=== PATIENT | female | born 1940 | race Caucasian/White ===

== ENCOUNTER → 2017-04-21 | Outpatient (CLI) | payer MEDICARE, OTHER ==
[~2017-04-21] MED LIST: ? HTN MED; ACET500 PO; ACYC800 PO; ALBU.083IS IH; ALBU90OI; ALBU90OI INH; ALPR.25 PO; ALPR1 PO; ASPI325; ASPI325EC PO; AZIT250 PO; Aerochamber1 EACH; BECL80OI INH; BENZ100A PO; BUDE6HFA; Brovana15 MCG/2 M INH; CARV3.125 PO; CEPH500 PO; CHOL10002 PO; CITA10S PO; CITA20 PO; CONEST.625; CRANBERRY250 MG; CYAN1000 PO; CYCL10 PO; DEXL60CA3 PO; DOCU100 PO; DOXY100 PO; ESCI20 PO; GABA300 PO; GUAI200 PO; HYDACE5 PO; HYDACE5325 PO; HYDCHL12.5 PO; LAVAP17G; LAVAP17G PO; LEVOTHYROXINE; LEVSOD100 PO; LEVSOD112 PO; LEVSOD25 PO; LISHYD2025 PO; LISI20 PO; LISI5 PO; LORA.5 PO; MELA3 PO; META800 PO; MULVITB PO; Macrobid 100 M100 MG PO; Mucinex600 MG PO; NAPR220; NITR.4SL SL; OMEP40CA12 PO; ONDA4 PO; OXYACE5T PO; PRED20 PO; PRESERVISION A1 EACH; PROM25 PO; Percocet 5-3251 EACH PO; Perforomis20 MCG/2 M; Prednisone20 MG PO; Protonix40 MG PO; RANI150; RXCLIN PO; RXCYCL10 PO; RXHYDACE PO; SENN187; SOLI5 PO; SPIHYD PO; SULTRISS PO; Senna-Docusate1 EACH PO; TIOT18; TIOT18 INH; TRAM50 PO; TRAMADOL; TRAZ100 PO; Tylenol325 MG; Ventolin Soln3 ML INH; Vitamin D400 UNI1; Zithromax250 MG PO; [UNRECOGNIZED DRUG - REMARK]
== END | disposition home or self-care (01) ==
LOC: LAB 16:14
DX: N39.0 Urinary tract infection, site not specified (principal)
CPT/HCPCS: 87077; 87086; 87186

== ENCOUNTER → 2017-05-20 | Outpatient (CLI) | payer MEDICARE, OTHER ==
[2017-05-23 15:03] LABS: Candida species (DNA Probe) Negative (NEGATIVE); G. vaginalis (DNA Probe) Negative (NEGATIVE); T. vaginalis (DNA Probe) Negative (NEGATIVE)
== END | disposition home or self-care (01) ==
LOC: LAB 18:09
PROVIDERS: Physician Assistant
DX: N89.8 Other specified noninflammatory disorders of vagina (principal); N39.0 Urinary tract infection, site not specified; R10.2 Pelvic and perineal pain
CPT/HCPCS: 87086; 87480; 87510; 87660

== ENCOUNTER 2020-10-09 23:34 | Emergency (ER) | payer MEDICARE, OTHER ==
[~2020-10-09] VITALS: Ht 154.9 cm; Wt 66.2 kg
[2020-10-10 01:06] LABS: Alanine Aminotransfer (ALT/SGP 38 U/L (12-78); Albumin, Blood 4.1 g/dL (3.4-5.0); Albumin/Globulin Ratio 1.1 (0.8-1.8); Alk Phos 78 U/L (50-136); Anion Gap 6 mmol/L (6-16); Aspartate Aminotrans (AST/SGOT 38 U/L (12-37); BASOPHILS ABSOLUTE AUTO 0.07 K/mm3 (0.00-0.23); BASOPHILS PERCENT AUTO 1 % (0-2); Bilirubin, Total 0.3 mg/dL (0.1-1.0); Blood Urea Nitrogen 13 mg/dL (8-24); Bun/Creatinine Ratio 16.4 (12.0-20.0); CO2, Blood 28 mmol/L (21-32); Calcium, Blood 9.1 mg/dL (8.5-10.1); Chloride, Blood 105 mmol/L (98-108); Creatinine, Blood 0.79 mg/dL (0.40-1.00); EOSINOPHILS ABSOLUTE AUTO 0.34 K/mm3 (0.00-0.68); EOSINOPHILS PERCENT AUTO 4 % (0-6); Globulin, Blood 3.7 g/dL (2.2-4.0); Glomerular Filtration Rate >60 (60-); Glucose, Blood 121 mg/dL (70-99); Hemoglobin 12.8 g/dL (11.5-16.0); IMMATURE GRAN ABSOLUTE AUTO 0.09 K/mm3 (0.00-0.10); IMMATURE GRAN PERCENT AUTO 1 % (0-1); LYMPHOCYTES PERCENT AUTO 24 % (21-46); MONOCYTES ABSOLUTE AUTO 1.09 K/mm3 (0.16-1.47); MONOCYTES PERCENT AUTO 13 % (4-13); Mean Corpuscular HGB 29.4 pg (26.0-34.0); Mean Corpuscular HGB Conc 32.8 g/dL (31.5-36.5); Mean Corpuscular Volume 90 fL (80-100); NEUTROPHILS ABSOLUTE AUTO 4.91 K/mm3 (1.96-9.15); NEUTROPHILS PERCENT AUTO 57 % (41-73); Potassium, Blood 4.7 mmol/L (3.5-5.5); RDW Coefficient Variation 13.2 % (11.7-14.2); RDW Standard Deviation 43.6 fL (35.1-46.3); Red Blood Cell Count 4.35 M/mm3 (3.80-5.20); Sodium, Blood 139 mmol/L (136-145); Total Protein, Blood 7.8 g/dL (6.4-8.2)
[2020-10-10 01:10] LABS: Platelet Count 139 K/mm3 (150-400)
[2020-10-10 02:13] LABS: SARS-Cov-2 (COVID-19) PCR, MMC NEGATIVE (NEGATIVE)
== END 2020-10-10 02:22 | disposition short-term general hospital (02) ==
LOC: ER 23:34
PROVIDERS: Emergency Medicine
DX: S06.309A Unspecified focal traumatic brain injury with loss of consciousness of unspecified duration, initial encounter (principal); S01.01XA Laceration without foreign body of scalp, initial encounter; Z87.891 Personal history of nicotine dependence; Z91.030 Bee allergy status; Z88.0 Allergy status to penicillin; Z79.899 Other long term (current) drug therapy; Z20.822 Contact with and (suspected) exposure to COVID-19; W10.9XXA Fall (on) (from) unspecified stairs and steps, initial encounter
CPT/HCPCS: 12002; 36415; 70450; 72125; 80053; 85025; 93005; 93010; 96374; 96375; 99285-25; J1170; J3010; L0160; U0004